=== PATIENT | male | born 1965 | race Caucasian/White ===

== ENCOUNTER 2018-07-16 09:39 | Inpatient (IN) | payer OTHER ==
[~2018-07-16 09:39] MED LIST: DEXAMETHASONE 4 MG/ML 5 ML INJ; FENTAnyl 50 MCG/ML VIAL; GLYCOPYRROLATE 0.4 MG INJ; LIDOCAINE 2% (SDV) 5 ML INJ; MIDAZOLAM 1 MG/ML 2 ML INJ; NEOSTIGMINE 3 MG/3 ML SYRINGE; ONDANSETRON 4 MG INJ; PROPOFOL 20 ML; ROCURONIUM 50 MG INJ; SUCCINYLCHOLINE CHLORIDE 100 MG/5 ML SYG IV
[2018-07-16] MEDS ORDERED: GELATIN SIZE 100 SPONGE (09:42)
[2018-07-16] MEDS ORDERED: FENTAnyl 50 MCG/ML VIAL ×2 (10:50→13:37)
[2018-07-16] MEDS ORDERED: MIDAZOLAM 1 MG/ML 2 ML INJ (10:51)
[2018-07-16] MEDS ORDERED: PROPOFOL 20 ML (10:51)
[2018-07-16] MEDS ORDERED: LIDOCAINE 2% (SDV) 5 ML INJ (10:51)
[2018-07-16] MEDS ORDERED: ROCURONIUM 50 MG INJ (10:52)
[2018-07-16] MEDS ORDERED: SUCCINYLCHOLINE CHLORIDE 100 MG/5 ML SYG IV (10:52)
[2018-07-16] MEDS ORDERED: ONDANSETRON 4 MG INJ (10:52)
[2018-07-16] MEDS ORDERED: GLYCOPYRROLATE 0.4 MG INJ (10:52)
[2018-07-16] MEDS ORDERED: NEOSTIGMINE 3 MG/3 ML SYRINGE (10:52)
[2018-07-16] MEDS ORDERED: METOCLOPRAMIDE 10 MG INJ (10:53)
[2018-07-16 10:56] LABS: ADD MAN DIFF? NO
[2018-07-16 11:05] LABS: BASOPHIL # 0.1 10^3/ul (0.0-0.1); BASOPHILS % 0.6 % (0.0-2.0); EOSINOPHILS # 0.1 10^3/ul (0.0-0.5); EOSINOPHILS % 1.4 % (0.0-7.0); HEMOGLOBIN 13.7 g/dl (14.0-18.0); LYMPHOCYTES # 2.6 10^3/ul (0.8-2.9); LYMPHOCYTES % 26.1 % (15.0-51.0); MEAN CORPUSCULAR HEMOGLOBIN 30.8 pg (29.0-33.0); MEAN CORPUSCULAR HGB CONC 33.4 g/dl (32.0-37.0); MEAN CORPUSCULAR VOLUME 92.1 fl (82.0-101.0); MEAN PLATELET VOLUME 9.9 fl (7.4-10.4); MONOCYTE # 0.7 10^3/ul (0.3-0.9); MONOCYTES % 7.1 % (0.0-11.0); NEUTROPHIL # 6.5 10^3/ul (1.6-7.5); NEUTROPHILS % 64.3 % (39.0-77.0); PLATELET COUNT 235 10^3/UL (140-415); RED BLOOD COUNT 4.45 10^6/ul (4.70-6.10); RED CELL DISTRIBUTION WIDTH 13.5 % (11.5-14.5)
[2018-07-16 11:05] LABS: WHITE BLOOD COUNT 10.1 10^3/ul (4.8-10.8)
[2018-07-16] MEDS ORDERED: CEFAZOLIN 1 GM INJ (11:06)
[2018-07-16] MEDS ORDERED: CYCLOBENZAPRINE 10 MG TAB PO (12:30)
[2018-07-16] MEDS ORDERED: CEPASTAT LOZENGE MT (12:30)
[2018-07-16] MEDS ORDERED: DIPHENHYDRAMINE 25 MG CAP PO (12:30)
[2018-07-16] MEDS: CEFAZOLIN 1 GM/50 ML (PMX) 50 ML IVPB ×2 (12:30→20:23)
[2018-07-16] MEDS ORDERED: BISACODYL 10 MG SUPP PR (12:30)
[2018-07-16] MEDS ORDERED: HYDROCODONE/APAP (5/325) TAB PO (12:30)
[2018-07-16] MEDS ORDERED: ONDANSETRON 4 MG INJ IV (12:30)
[2018-07-16] MEDS ORDERED: NALOXONE (0.4 MG/ML) INJ IV (12:30)
[2018-07-16] MEDS ORDERED: DIPHENHYDRAMINE 50 MG INJ IV ×2 (12:30→14:00)
[2018-07-16] MEDS ORDERED: ACETAMINOPHEN 325 MG TAB PO (12:30)
[2018-07-16] MEDS ORDERED: HYDROmorphONE 0.5 MG/0.5 ML SYG IV (12:30)
[2018-07-16] MEDS ORDERED: METOPROLOL 5 MG INJ (12:57)
[2018-07-16] MEDS: BUPIVACAINE 0.25%/EPI (SDV) 30 ML INJ (13:11)
[2018-07-16] MEDS: CA CHLORIDE 10% 10 ML SYRINGE (13:28)
[2018-07-16] MEDS: SURGIFOAM POWDER 1 GM KIT (13:29)
[2018-07-16] MEDS: HEPARIN 1000 UNITS/ML 10 ML INJ (13:29)
[2018-07-16] MEDS: POLYMYXIN/BACITRACIN 1L IRRIG (13:30)
[2018-07-16] MEDS: THROMBIN (BOVINE) 5,000 UNIT VIAL TP (13:30)
[2018-07-16] MEDS ORDERED: HALOPERIDOL 5 MG INJ IV (14:00)
[2018-07-16] MEDS ORDERED: LABETALOL HCL 20MG INJ IV (14:00)
[2018-07-16] MEDS ORDERED: hydrALAzine 20 MG INJ IV (14:00)
[2018-07-16] MEDS ORDERED: HYDROmorphONE 1 MG/5 ML IV SYRINGE IV (14:00)
[2018-07-16] MEDS ORDERED: IPRATROPIUM (NEB) 0.5 MG/2.5 ML AMP HHN (14:00)
[2018-07-16] MEDS ORDERED: MIDAZOLAM 1 MG/ML 2 ML INJ IV (14:00)
[2018-07-16] MEDS ORDERED: LEVALBUTEROL (NEB) 1.25 MG/0.5 ML AMP HHN (14:00)
[2018-07-16] MEDS ORDERED: FENTAnyl 50 MCG/ML VIAL IV ×2 (14:00)
[2018-07-16] MEDS ORDERED: LORAZEPAM 2 MG INJ IV (14:00)
[2018-07-16] MEDS: MEPERIDINE 25 MG INJ IV (15:16)
[2018-07-16] MEDS: ONDANSETRON 4 MG INJ IV (15:16)
[2018-07-16] MEDS: HYDROmorphONE 1 MG/5 ML IV SYRINGE IV ×3 (15:26→15:40)
[2018-07-16] MEDS: D5W-0.45 NACL + KCL 20 MEQ 1,000 ML IV ×2 (18:50→22:14)
[2018-07-16] MEDS: HYDROCODONE/APAP (5/325) TAB PO (18:50)
[2018-07-16] MEDS: NICOTINE (21 MG/24 HR) PATCH TRANSDERM (20:23)
[2018-07-16] MEDS: DOCUSATE SODIUM 100 MG CAP PO (20:34)
[2018-07-16] MEDS: TAMSULOSIN (SR) 0.4 MG CAP PO (23:51)
[2018-07-17] MEDS: CEFAZOLIN 1 GM/50 ML (PMX) 50 ML IVPB (04:37)
[2018-07-17 05:04] LABS: ADD MAN DIFF? NO
[2018-07-17 05:12] LABS: BASOPHILS % 0.1 % (0.0-2.0); HEMATOCRIT 37.9 % (42.0-52.0); HEMOGLOBIN 12.6 g/dl (14.0-18.0); LYMPHOCYTES # 1.6 10^3/ul (0.8-2.9); LYMPHOCYTES % 11.4 % (15.0-51.0); MEAN CORPUSCULAR HGB CONC 33.2 g/dl (32.0-37.0); MEAN CORPUSCULAR VOLUME 93.1 fl (82.0-101.0); MEAN PLATELET VOLUME 10.2 fl (7.4-10.4); MONOCYTE # 0.9 10^3/ul (0.3-0.9); MONOCYTES % 6.2 % (0.0-11.0); NEUTROPHIL # 11.3 10^3/ul (1.6-7.5); NEUTROPHILS % 81.9 % (39.0-77.0); PLATELET COUNT 238 10^3/UL (140-415); RED BLOOD COUNT 4.07 10^6/ul (4.70-6.10); RED CELL DISTRIBUTION WIDTH 13.2 % (11.5-14.5)
[2018-07-17 05:12] LABS: WHITE BLOOD COUNT 13.8 10^3/ul (4.8-10.8)
[2018-07-17 05:30] LABS: ANION GAP 8 (5-13); BLOOD UREA NITROGEN 11 mg/dl (7-20); CALCIUM 9.3 mg/dl (8.4-10.2); CARBON DIOXIDE 23 mmol/L (21-31); CHLORIDE 109 mmol/L (97-110); CREATININE 0.54 mg/dl (0.61-1.24); Estimated GFR > 60 mL/min (>60); GLUCOSE 136 mg/dl (70-220); POTASSIUM 4.2 mmol/L (3.5-5.1); SODIUM 140 mmol/L (135-144)
[2018-07-17] MEDS: D5W-0.45 NACL + KCL 20 MEQ 1,000 ML IV (05:35)
[2018-07-17] MEDS: AL HYDROX/MG HYDROX/SIMETH 30 ML CUP PO ×2 (05:35→17:01)
[2018-07-17] MEDS: NICOTINE (21 MG/24 HR) PATCH TRANSDERM (08:54)
[2018-07-17] MEDS: DOCUSATE SODIUM 100 MG CAP PO (09:00)
[2018-07-17] MEDS: HYDROCODONE/APAP (5/325) TAB PO ×3 (09:01→16:48)
[2018-07-17 15:14] LABS: ADD UMIC YES; UR ASCORBIC ACID NEGATIVE (NEGATIVE); UR BILIRUBIN (Dip) NEGATIVE (NEGATIVE); UR BLOOD (Dip) 2+ mg/dL (NEGATIVE); UR CLARITY CLEAR (CLEAR); UR COLOR STRAW (YELLOW); UR GLUCOSE (Dip) NEGATIVE (NEGATIVE); UR KETONES (Dip) NEGATIVE (NEGATIVE); UR LEUKOCYTE ESTERASE (Dip) NEGATIVE Leu/ul (NEGATIVE); UR NITRITE (Dip) NEGATIVE (NEGATIVE); UR RBC 1 /HPF (0-5); UR SPECIFIC GRAVITY (Dip) 1.006 (1.003-1.030); UR TOTAL PROTEIN (Dip) NEGATIVE (NEGATIVE); UR UROBILINOGEN (Dip) NEGATIVE (NEGATIVE); UR WBC 1 /HPF (0-5)
[2018-07-17] MEDS ORDERED: TAMSULOSIN (SR) 0.4 MG CAP PO (21:00)
== END 2018-07-17 17:35 | disposition home or self-care (01) | DRG 520 ==
LOC: REC 09:39 → MS1 15:53
PROVIDERS: Specialist
PROC: 0SB20ZZ Excision of Lumbar Vertebral Disc, Open Approach (ICD-10-PCS; principal; 2018-07-16 12:00)
PROC: 4A11X4G Monitoring of Peripheral Nervous Electrical Activity, Intraoperative, External Approach (ICD-10-PCS; 2018-07-16 12:00)
DX: M51.16 Intervertebral disc disorders with radiculopathy, lumbar region (principal); E66.9 Obesity, unspecified; I10 Essential (primary) hypertension; F17.200 Nicotine dependence, unspecified, uncomplicated; I45.10 Unspecified right bundle-branch block; R33.9 Retention of urine, unspecified; Z68.37 Body mass index [BMI] 37.0-37.9, adult
CPT/HCPCS: 72020; 80048; 81001; 83735; 85025; 86999; 87086; 88304; 97116; 97161; 97530